=== PATIENT | male | born 1940 | race Caucasian/White ===

== ENCOUNTER 2018-02-15 10:03 | Emergency (ER) | payer OTHER, MEDICARE ==
[~2018-02-15] VITALS: Ht 180.3 cm; Wt 83.9 kg
[2018-02-15 10:07] VITALS: BP 149/81
--- NOTE | 2018-02-15 10:58 | CT SCAN REPORT ---
EXAMINATION: CT HEAD WITHOUT CONTRAST CLINICAL INFORMATION: Head laceration status-post fall; question intracranial hemorrhage. COMPARISON: None TECHNIQUE: Contiguous axial imaging was performed from the skull base to vertex without intravenous administration of contrast. DLP: 695.06 mGy-cm FINDINGS: There is no evidence of acute intracranial hemorrhage or territorial infarction. No abnormal mass effect or midline shift is seen. Hammonds to white matter differentiation is well preserved. No extra-axial fluid collections are identified. The ventricles are normal in size. The sulci are age-appropriate. There is no abnormal attenuation within the brain parenchyma. There is a right occipital scalp hematoma. The osseous structures are normal. There is mild left ethmoid and sphenoid sinusitis. The mastoid air cells are well aerated and clear. IMPRESSION: 1. No acute intracranial pathology. 2. A right occipital scalp hematoma is seen, without underlying fracture. 3. There is mild left ethmoid and sphenoid sinusitis.
--- NOTE | 2018-02-15 11:00 | ED HEAD/FACIAL INJ COMPLAINT ---
History of Present Illness General Chief Complaint: Facial or Head Injury Stated Complaint: SENT BY URGENT CARE FOR EVAL OF HEAD LAC - CT Source: patient, family, old records Exam Limitations: no limitations Vital Signs & Intake/Output Vital Signs & Intake/Output Vital Signs Date Time Temp Pulse Resp B/P B/P Pulse O2 O2 Flow FiO2 Mean Ox Delivery Rate 02/15 1007 98.2 62 18 149/81 98 Room Air Allergies Coded Allergies: No Known Allergies (02/15/18) Reconcile Medications Amoxicillin 875 MG TABLET 1 TAB PO BID sinusitis Loratadine (Claritin) 10 MG TABLET 1 TAB PO DAILY allergy Mometasone Furoate (Nasonex) 50 MCG SPRAY.PUMP 2 SPRAY NASB DAILY sinusitis Oxymetazoline HCl (Afrin) 0.05 % SPRAY 2 SPRAY NASB BID sinusitis Use for 3 days Triage Note: PRESENTS TO ED FOR EVALUATION OF HEAD LACERATION S/P FALL. 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 DENIED LOC. DENIED NAUSEA OR VOMITING. Triage Nurses Notes Reviewed? yes Onset: Morning Severity: moderate Location: occipital Method of Injury: direct blow, fall Loss of Consciousness: no loss of consciousness HPI: The patient awoke this morning with leg cramps lost his balance and fell back striking the right occipital area on a bookcase sustaining laceration. He bandaged it up went back to bed. He was cleaning the basement and then noted blood running down the back of his neck. He also complains of chronic nasal congestion sinus pressure episodic nosebleeds. There was no fever chills nausea vomiting diarrhea abdominal pain chest pain shortness of breath headache dysuria rash loss of consciousness change in motor sensory function change in bowel bladder habit. Past History Travel History Traveled to [place] past 21 day No Medical History Any Pertinent Medical History? see below for history Cardiovascular: HTN. HIGH CHOLESTEROL. Surgical History Surgical History: non-contributory Psychosocial History Tobacco Use: Never used Family History Hx Contributory? No Review of Systems Review of Systems Constitutional: Reports: no symptoms. EENTM: Reports: no symptoms. Respiratory: Reports: no symptoms. Cardiovascular: Reports: no symptoms. GI: Reports: no symptoms. Genitourinary: Reports: no symptoms. Musculoskeletal: Reports: no symptoms. Skin: Reports: see HPI. Neurological/Psychological: Reports: no symptoms. Hematologic/Endocrine: Reports: no symptoms. Immunologic/Allergic: Reports: no symptoms. All Other Systems: Reviewed and Negative Physical Exam Physical Exam General Appearance: well developed/nourished, alert, awake, mild distress, thin Head: active bleeding, evidence of injury, contusions, lacerations (right occipital area) Eyes: Bilateral: normal appearance, PERRL, EOMI. Ears, Nose, Throat: normal pharynx, normal ENT inspection, hearing grossly normal Neck: normal inspection, supple, full range of motion, trachea midline Respiratory: normal breath sounds, chest non-tender, no respiratory distress, quiet respiration, lungs clear Cardiovascular: regular rate/rhythm, normal peripheral pulses, norml femoral pulses equa Gastrointestinal: normal bowel sounds, soft, non-tender, no organomegaly Back: normal inspection, normal range of motion, no vertebral tenderness Extremities: normal inspection, normal capillary refill, normal range of motion, no edema Psychiatric: awake, alert, oriented x 3 Cranial Nerves: normal hearing, PERRL Coordination/Gait: normal finger to nose, normal gait Motor/Sensory: no motor/sensory deficits Reflexes: 2+: bicep (R), bicep (L). Skin: normal color, warm/dry Lymphatic: no anterior cervical ronald Progress Differential Diagnosis: ICH, skull fracture Plan of Care: wound care Diagnostic Imaging: Viewed by Me: CT Scan. Discussed w/RAD: CT Scan. Radiology Impression: 1. No acute intracranial pathology. 2. A right occipital scalp hematoma is seen, without underlying fracture. 3. There is mild left ethmoid and sphenoid sinusitis. Departure Departure Time of Disposition: 1134 Disposition: HOME OR SELF CARE Condition: Stable Clinical Impression Primary Impression: Occipital scalp laceration Secondary Impressions: Sinusitis Referrals: Lily ORLANOD,Saleem Culver Call for ENT follow up Francisco ORLANDO,Thi (PCP/Family) Additional Instructions: Return for suture removal in 10-14 days Departure Forms: Customer Survey General Discharge Information Prescriptions: Current Visit Scripts Oxymetazoline HCl (Afrin) 2 SPRAY NASB BID #30 ML Use for 3 days Amoxicillin 1 TAB PO BID #42 TAB Mometasone Furoate (Nasonex) 2 SPRAY NASB DAILY #1 INHAL Loratadine (Claritin) 1 TAB PO DAILY #30 TAB Ref 10 Procedures Laceration/Wound Repair Laceration/Wound Repair: Wound Location: head (R occipital) Wound's Depth, Shape: contused tissue, irregular Wound Length (cm): 4.5 Wound Explored: clean, no foreign body removed, irrigated extensively Irrigated w/ Saline (ccs): 250 Betadine Prep? No Anesthesia: 1% lidocaine Volume Anesthetic (ccs): 5 Wound Repaired With: nino Suture Size/Type: nino Number of Sutures: 6 Layer Closure? No Sterile Dressing Applied: Yes Splint Applied? No Sling Applied? No
[2018-02-15] MEDS ORDERED: AFRIN30 ML NASB (11:38)
[2018-02-15] MEDS ORDERED: NASONEX17 GM NASB (11:38)
[2018-02-15] MEDS ORDERED: CLARITIN10 M1 PO (11:38)
[2018-02-15] MEDS ORDERED: AMOXICILLIN875 M1 PO (11:38)
== END 2018-02-15 11:50 ==
LOC: ERH 10:03
DX: S01.01XA Laceration without foreign body of scalp, initial encounter (principal); J32.9 Chronic sinusitis, unspecified; W19.XXXA Unspecified fall, initial encounter; Y93.9 Activity, unspecified; Y92.9 Unspecified place or not applicable

== ENCOUNTER 2018-03-12 08:24 | Emergency (ER) | payer OTHER, MEDICARE ==
[~2018-03-12] VITALS: Ht 182.9 cm; Wt 84.4 kg
[~2018-03-12 08:24] MED LIST: AFRIN30 ML NASB; AMOXICILLIN875 M1 PO; CLARITIN10 M1 PO; NASONEX17 GM NASB
[2018-03-12 08:33] VITALS: BP 152/76
--- NOTE | 2018-03-12 08:39 | ED AMS/SEIZURE/WEAK/DIZZY ---
See Addendum History of Present Illness General Chief Complaint: Facial or Head Injury Stated Complaint: SIB BERTIN, RUTHERFORD,DOUBLE VISION, S/P HEAD STRIKE Source: patient Exam Limitations: no limitations Vital Signs & Intake/Output Vital Signs & Intake/Output Vital Signs Date Time Temp Pulse Resp B/P B/P Pulse O2 O2 Flow FiO2 Mean Ox Delivery Rate 03/12 0833 96.2 71 18 152/76 99 Room Air Allergies Coded Allergies: No Known Allergies (02/15/18) Reconcile Medications Amlodipine Besylate 5 MG TABLET 1 TAB PO DAILY HEART (Reported) Atorvastatin Calcium 40 MG TABLET 1 TAB PO DAILY CHOLESTEROL (Reported) Losartan Potassium 25 MG TABLET 1 TAB PO DAILY HEART (Reported) Triage Note: PT SENT IN BY DR. WILLIAM FOR HEAD CT. PT FELL IN January AND STATES HE WAS SEEN HERE AND HAD NINO IN HIS HEAD. PT STATES SINCE HE HAS A NUMB H/A IN THE BACK OF HIS HEAD AND HE STAGGERS AND OCCASIONALY HE GETS BLURRY VISION AND HAS WHITE FLASHES IN THE CORNERS OF HIS EYES. Triage Nurses Notes Reviewed? yes Onset: Gradual Duration: gone now, intermittent Timing: recent history Severity: moderate Severity Numbers: 5 HPI: Patient is a 77-year-old male with a past medical history of HLD, HTN, AORTIC Stenosis who presents to the emergency room stating that approximately one month ago patient suffered a right-sided head strike due to a mechanical fall where patient was evaluated at [facility] emergency room and received CT scan with no acute intracranial process however he was advised to begin medications for chronic sinusitis noted on CT scan. Since then patient has been complaining of intermittent headaches dizziness and blurry vision. 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 Patient states that yesterday he was dizzy however he did have a colonoscopy performed with no complications. Patient currently complains of 1/10 occipital headache achy sensation PT was advised by primary care doctor to present to emergency for CT scan evaluation. Denies any fever chills chest pain neck pain shortness of breath nausea vomiting Due to patient's initial fall he had nino placed in which they were removed approximate one week later by his primary care doctor denies any symptoms of infection due to the laceration of his scalp (Asaf Ramirez) Past History Travel History Traveled to [place] past 21 day No Medical History Any Pertinent Medical History? see below for history Cardiovascular: HTN. HIGH CHOLESTEROL. Surgical History Surgical History: non-contributory Psychosocial History What is your primary language Sami Tobacco Use: Quit >30 days ago ETOH Use: occasional use Illicit Drug Use: marijuana Family History Hx Contributory? No (Asaf Ramirez) Review of Systems Review of Systems Constitutional: Reports: no symptoms. EENTM: Reports: see HPI. Respiratory: Reports: no symptoms. Cardiovascular: Reports: no symptoms. GI: Reports: no symptoms. Genitourinary: Reports: no symptoms. Musculoskeletal: Reports: no symptoms. Skin: Reports: no symptoms. Neurological/Psychological: Reports: see HPI, headache. Hematologic/Endocrine: Reports: no symptoms. Immunologic/Allergic: Reports: no symptoms. All Other Systems: Reviewed and Negative (Asaf Ramirez) Physical Exam Physical Exam General Appearance: no apparent distress, alert, comfortable Eyes: Bilateral: normal appearance, PERRL, EOMI. Ears, Nose, Throat: normal pharynx, normal ENT inspection Neck: normal inspection, supple, no midline tenderness Respiratory: normal breath sounds, chest non-tender, no respiratory distress Cardiovascular: regular rate/rhythm Gastrointestinal: normal bowel sounds, soft, non-tender Extremities: normal range of motion Neurologic/Psych: no motor/sensory deficits, awake, alert, oriented x 3, normal gait, normal mood/affect, rigging man II-XII nml as tested Skin: intact, normal color Diagram Body: 1) 3 CM WELL HEALING LACERATION WITH NO SIGNS OF INFECTION Core Measures ACS in differential dx? No CVA/TIA Diagnosis Yes Sepsis Present: No Sepsis Focused Exam Completed? No (Asaf Ramirez) Progress Differential Diagnosis: arrythmia, alcohol intoxication, anemia, benign positional vertigo, CVA/stroke, dehydration, drug intoxication, encephalitis, electrolyte imbalance, GI bleed, hypoglycemia, hypoxia, intracranial Hem., intracranial mass/tumor, labrynthitis, meningitis, Meniere's disease, migraine RUTHERFORD, multiple sclerosis, pneumonia, postural hypotension, presyncope, post- traumatic vertigo, sepsis, seizure disorder, subarachnoid Hem., UTI/pyelo, vertebrobasilar insuff Plan of Care: Orders Procedure Date/time Status PARTIAL THROMBOPLASTIN TIME 03/12 912 Complete PROTHROMBIN TIME 03/12 912 Complete TROPONIN LEVEL 03/12 839 Complete COMPREHENSIVE METABOLIC PANEL 03/12 839 Complete CBC WITHOUT DIFFERENTIAL 03/12 839 Complete EKG 03/12 839 Active Laboratory Tests 03/12/18 0925: Anion Gap 10, Estimated GFR > 60, BUN/Creatinine Ratio 18.0, Glucose 83, Calcium 9.3, Total Bilirubin 0.9, AST 31, ALT 27, Alkaline Phosphatase 66, Troponin I < 0.01, Total Protein 7.1, Albumin 4.3, Globulin 2.8, Albumin/Globulin Ratio 1.5, PT 11.4, INR 1.05, APTT 33, CBC w Diff NO MAN DIFF REQ, RBC 4.35 L, MCV 90.8, MCH 31.7 H, MCHC 34.9, RDW 13.7, MPV 8.3, Gran % 59.4, Lymphocytes % 26.3, Monocytes % 10.7 H, Eosinophils % 3.1, Basophils % 0.5, Absolute Granulocytes 3.9, Absolute Lymphocytes 1.7, Absolute Monocytes 0.7 H, Absolute Eosinophils 0.2, Absolute Basophils 0 Patient currently is resting comfortably bedside unremarkable neurological exam no deficit noted CT scan was reviewed in February 15 noted to be no intracranial process dictated by the radiologist however today radiologist is concerned of a 1 cm subacute subdural hematoma with slight mass shift Patient denies any reoccurrence of fall or trauma denies any blood thinner use Discussed CT scan results with patient who was aware 09 [facility] I discussed patient with Dr. AWAD was aware of patient's symptoms and subacute subdural hematoma and which she accepted patient to be transferred to [facility] and which she will be the attending physician. Patient agreed upon this transfer and will receive BURROWING for persistent symptoms AND ICH Patient SIGEND transfer documentation discussed patient with Dr. Le was aware Diagnostic Imaging: Viewed by Me: CT Scan. Radiology Impression: acute abnormality Initial ED EKG: normal intervals, normal p-waves, 64 BPM,NSR Comments: PATIENT: SIMIN URBANO PRESENT AGE: 77 PATIENT ACCOUNT NO: [id number] : 41 LOCATION: [facility] ORDERING PHYSICIAN: Raffy Le MD SERVICE DATE: 03/12/18 EXAM TYPE: CAT - CT HEAD WO IV CONTRAST EXAMINATION: CT HEAD WITHOUT CONTRAST CLINICAL INFORMATION: Fall in January. Evaluate for intracranial hemorrhage. COMPARISON: CT head 02/15/2018. TECHNIQUE: Contiguous axial imaging was performed from the skull base to vertex without intravenous administration of contrast. DLP: 701.89 mGy-cm FINDINGS: There is a mixed density hematoma over the right cerebral convexity that measures 1 cm in maximal thickness. Mass effect within the right supratentorial compartment causes 0.4 cm leftward midline shift measured at the septum pellucidum. Hammonds-white matter differentiation is grossly preserved and there is no evidence of acute territorial infarct. No hydrocephalus. The calvarium and skull base are intact. Mastoid air cells and middle ear cavities are well-aerated. Visualized paranasal sinuses are well-aerated with exception of mild disease within ethmoid air cells. IMPRESSION: There is a subacute subdural hematoma over the right cerebral convexity measuring 1 cm in maximal thickness. Mass effect within the right supratentorial compartment causes 0.4 cm leftward midline shift measured septum pellucidum. This critical result was discussed with Raffy Le at 03/12/2018 9:07 AM and it was ascertained that the content and urgency of the report was understood at the time of direct communication. DICTATED BY: Nayeli ORLANDO,Brandt Doyle DATE/TIME DICTATED:03/12/18901 BLOCK TRADER:SHAKIR DATE/TIME TRANSCRIBED:03/12/18901 (Asaf Ramirez) Departure Departure Disposition: [facility] (ACUTE) Condition: Stable Clinical Impression Primary Impression: Subdural hematoma Referrals: Shirley ORLANDO,Asaf William MD,Thi (PCP/Family) Departure Forms: Customer Survey General Discharge Information (Asaf Ramirez) PA/CONSTRUCTION QUALITY CONTROL MANAGER Co-Sign Statement Statement: ED Attending supervision documentation- [X] I saw and evaluated the patient. I have also reviewed all the pertinent lab results and diagnostic results. I agree with the findings and the plan of care as documented in the PA's/CONSTRUCTION QUALITY CONTROL MANAGER's documentation. [X] I have reviewed the ED Record and agree with the PA's/CONSTRUCTION QUALITY CONTROL MANAGER's documentation. [] Additions or exceptions (if any) to the PAs/CONSTRUCTION QUALITY CONTROL MANAGER's note and plan are summarized below: [] (Rey ORLANDO,Raffy Corado) Critical Care Note Critical Care Note Critical Care Time: 30-74 min (Ladonna PONCEAsaf)
--- NOTE | 2018-03-12 09:15 | CT SCAN REPORT ---
EXAMINATION: CT HEAD WITHOUT CONTRAST CLINICAL INFORMATION: Fall in January. Evaluate for intracranial hemorrhage. COMPARISON: CT head 02/15/2018. TECHNIQUE: Contiguous axial imaging was performed from the skull base to vertex without intravenous administration of contrast. DLP: 701.89 mGy-cm FINDINGS: There is a mixed density hematoma over the right cerebral convexity that measures 1 cm in maximal thickness. Mass effect within the right supratentorial compartment causes 0.4 cm leftward midline shift measured at the septum pellucidum. Hammonds-white matter differentiation is grossly preserved and there is no evidence of acute territorial infarct. No hydrocephalus. The calvarium and skull base are intact. Mastoid air cells and middle ear cavities are well-aerated. Visualized paranasal sinuses are well-aerated with exception of mild disease within ethmoid air cells. IMPRESSION: There is a subacute subdural hematoma over the right cerebral convexity measuring 1 cm in maximal thickness. Mass effect within the right supratentorial compartment causes 0.4 cm leftward midline shift measured septum pellucidum. This critical result was discussed with Raffy Le at 03/12/2018 9:07 AM and it was ascertained that the content and urgency of the report was understood at the time of direct communication.
[2018-03-12 09:31] LABS: ABSOLUTE BASOPHIL COUNT 0 /CUMM (0.0-0.2); ABSOLUTE EOSINOPHIL COUNT 0.2 /CUMM (0.0-0.7); ABSOLUTE GRANULOCYTE CT 3.9 /CUMM (1.4-6.5); ABSOLUTE LYMPH COUNT 1.7 /CUMM (1.2-3.4); ABSOLUTE MONOCYTE COUNT 0.7 /CUMM (0.10-0.60); BASOPHIL % 0.5 % (0.0-2.0); EOSINOPHIL % 3.1 % (0-5); GRANULOCYTE % 59.4 % (42.2-75.2); HEMATOCRIT 39.5 % (42-52); MEAN CORPUSCULAR HGB 31.7 PG (27.0-31.0); MEAN CORPUSCULAR HGB CONC 34.9 G/DL (33.0-37.0); MEAN CORPUSCULAR VOLUME 90.8 FL (80.0-94.0); MEAN PLATELET VOLUME 8.3 FL (7.4-10.4); PLATELET COUNT 173 /CUMM (130-400); RBC DISTRIBUTION WIDTH 13.7 % (11.5-14.5); RED BLOOD CELL CT 4.35 /CUMM (4.70-6.10); WHITE BLOOD CELL COUNT 6.5 /CUMM (4.8-10.8)
[2018-03-12 09:40] LABS: PT 11.4 SEC (9.4-12.5); PTT 33 SEC (25-37)
[2018-03-12] MEDS ORDERED: ATORVASTATIN CA40 M1 PO (09:40)
[2018-03-12] MEDS ORDERED: AMLODIPINE BESYL5 M1 PO (09:40)
[2018-03-12] MEDS ORDERED: LOSARTAN POTASS25 M1 PO (09:41)
== END 2018-03-12 11:10 | disposition short-term general hospital (02) ==
LOC: ERH 08:24
PROVIDERS: Physician Assistant
DX: I62.00 Nontraumatic subdural hemorrhage, unspecified (principal); Z87.891 Personal history of nicotine dependence; H53.2 Diplopia; R42 Dizziness and giddiness; I10 Essential (primary) hypertension
CPT/HCPCS: 93005; 93010